=== PATIENT | female | born 1980 | race African-American/Black ===

== ENCOUNTER 2017-10-31 14:44 | Emergency (ER) | payer SELFPAY ==
[2017-10-31 15:53] LABS: Absolute Lymphocytes (CBC) 1.7 K/uL (0.7-4.9); Absolute Monocytes 0.3 K/uL (0.1-1.3); Absolute Neutrophil 2.4 K/uL (1.8-8.0); Basophils % 0.7 % (0-1.3); Eosinophils % 1.7 % (0-4.4); Hematocrit 35.7 % (36.0-45.0); Lymphocytes % 37.3 % (15.3-44.8); MCH 29.2 pg (27.0-35.0); MCV 87.8 fL (80-100); MPV 8.2 fL (7.6-11.3); Monocytes % 6.7 % (3.3-12.3); RBC Red Blood Cell Count 4.07 M/uL (3.86-4.86)
[2017-10-31 16:08] LABS: ALT/SGPT 16 U/L (12-78); AST/SGOT 13 U/L (15-37); Albumin 3.4 g/dL (3.4-5.0); Alkaline Phosphatase 82 U/L (45-117); BUN Blood Urea Nitrogen 11 mg/dL (7-18); Bicarbonate 30 mmol/L (21-32); Bilirubin Direct < 0.1 mg/dL (0-0.2); Bilirubin Total 0.3 mg/dL (0.2-1.0); Glucose Level 94 mg/dL (74-106); Lipase 123 U/L (73-393); Potassium 4.1 mmol/L (3.5-5.1); Protein, Total 7.2 g/dL (6.4-8.2); Sodium Level 140 mmol/L (136-145)
--- NOTE | 2017-10-31 17:13 | RAD REPORT ---
EXAM DESCRIPTION: CT - Stone Protocol - 10/31/2017 5:02 pm CLINICAL HISTORY: Flank pain. Flank pain;Constipation COMPARISON: No comparisons TECHNIQUE: Axial images were obtained without oral or IV contrast. Lack of contrast limits solid org an and vascular assessment. The [id number] spans the entirety of the system partially obscuring uppermost abdomen and lung bases. Coronal reformatted images were obtained and reviewed. All CT scans are performed using dose optimization technique as appropriate and may include automated exposure control or mA/KV adjustment according to patient size. FINDINGS: The lower lung jimenez are clear. Imaged portions of the liver and spleen show no suspicious findings on non-contrast imaging.Cholelith iasis. The pancreas and adrenal glands are normal. No pathologic lymphadenopathy in the abdomen or pe lvis. No urinary tract stones or obstructive uropathy. No bowel obstruction, free air, free fluid or abscess. Prominent mild of stool is present in the colo n. Small fat containing supraumbilical hernia is present without bowel involvement. Trace fluid is pr esent hernia sac.The appendix is not identified as a discrete structure, however, no secondary findin gs of appendicitis are identified. No fracture seen. Prominent L5-S1 spondylosis. Mildly enlarged uterus with 3 cm left adnexal cyst or follicle suspected. IMPRESSION: No urinary tract stones or obstructive uropathy. Significant fecal retention. Cholelithiasis.
[2017-10-31 17:26] LABS: Urine Blood NEGATIVE (NEG); Urine Glucose NEGATIVE (NEG); Urine Protein NEGATIVE (NEG)
--- NOTE | 2017-10-31 17:38 | ER ---
Nurse's Notes [facility] Name: Nathalie Cruz Age: 37 yrs Sex: Female : 1980 Arrival Date: 10/31/2017 Time: 14:48 Bed 14 Private MD: Diagnosis: Constipation;Unspecified abdominal pain;Cholelithiasis Presentation: 10/31 14:50 Presenting complaint: Patient states: " My side and lower back are hurting and I'm ph constipated. I've even tried suppositories and they aren't helping. Also my hernia (umbilical) is out and won't go back in." Pt reports R low back and flank pain, denies N/V or fever. Transition of care: patient was not received from another setting of care. Onset of symptoms was October 31, 2017. Risk Assessment: Do you want to hurt yourself or someone else? Patient reports no desire to harm self or others. Initial Sepsis Screen: Does the patient meet any 2 criteria? No. Patient's initial sepsis screen is negative. Does the patient have a suspected source of infection? No. Patient's initial sepsis screen is negative. Care prior to arrival: None. 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 - Social history:: Smoking status: Patient uses tobacco products, smokes one-half pack cigarettes per day. - Ebola Screening: : No symptoms or risks identified at this time. Screenin:00 Abuse screen: Denies threats or abuse. Nutritional screening: No deficits noted. rb1 Tuberculosis screening: No symptoms or risk factors identified. Fall Risk None identified. Assessment: 15:00 General: Appears in no apparent distress. comfortable, Behavior is calm, cooperative. rb1 Pain: Complains of pain in right lower quadrant and left lower quadrant Pain radiates to right flank Pain currently is 8 out of 10 on a pain scale. Neuro: Level of Consciousness is awake, alert, obeys commands, Oriented to person, place, time, situation. Cardiovascular: Capillary refill < 3 seconds is brisk in bilateral fingers. Respiratory: Airway is patent Respiratory effort is even, unlabored, Respiratory pattern is regular, symmetrical. GI: Bowel sounds present X 4 quads. Abd is soft Abdomen is tender to palpation in right lower quadrant and left lower quadrant Reports constipation. : No signs and/or symptoms were reported regarding the genitourinary system. Derm: Skin is dry, Skin is normal, Skin temperature is warm. 16:00 Reassessment: Patient appears in no apparent distress at this time. No changes from rb1 previously documented assessment. 17:00 Reassessment: Patient appears in no apparent distress at this time. Patient and/or rb1 family updated on plan of care and expected duration. Pain level reassessed. Patient is alert, oriented x 3, equal unlabored respirations, skin warm/dry/pink. 17:52 Reassessment: Patient appears in no apparent distress at this time. No changes from rb1 previously documented assessment. Vital Signs: 14:53 BP 98 / 60; Pulse 63; Resp 18; Temp 97.9; Pulse Ox 100% on R/A; Weight 61.23 kg; Height ph 5 ft. 4 in. (162.56 cm); Pain 8/10; 15:50 BP 108 / 41; Pulse 63; Resp 16; Pulse Ox 98% on R/A; rb1 16:46 BP 102 / 67; Pulse 55; Resp 17; Pulse Ox 100% ; rb1 17:46 BP 103 / 66; Pulse 62; Resp 16; Pulse Ox 100% on R/A; rb1 14:53 Body Mass Index 23.17 (61.23 kg, 162.56 cm) ph ED Course: 14:48 Patient arrived in ED. mr 14:52 Triage completed. ph 14:53 Arm band placed on. ph 14:58 Lakhwinder Clements, ROMAN is PHCP. pm1 14:58 Donavan Solano MD is Attending Physician. pm1 15:00 Patient has correct armband on for positive identification. Bed in low position. Call rb1 light in reach. Side rails up X 1. Pulse ox on. NIBP on. Warm blanket given. 15:02 Kassandra Comer, ERVIN is Primary Nurse. rb1 15:35 Inserted saline lock: 22 gauge in right antecubital area, using aseptic technique. rb1 Blood collected. 15:48 Radiology exam delayed due to test not completed at this time. jj2 16:[address] vm2 17:03 CT Stone Protocol In Process Unspecified. EDMS 17:39 Joshua Morales MD is Referral Physician. pm1 18:01 No provider procedures requiring assistance completed. IV discontinued, intact, rb1 bleeding controlled, No redness/swelling at site. Pressure dressing applied. Administered Medications: No medications were administered Outcome: 17:38 Discharge ordered by MD. pm1 18:01 Patient left the ED. rb1 18:01 Discharged to home ambulatory. rb1 18:01 Condition: stable 18:01 Discharge instructions given to patient, Instructed on discharge instructions, follow up and referral plans. medication usage, Demonstrated understanding of instructions, follow-up care, medications, Prescriptions given X 1. Signatures: Dispatcher [employer] [facility] Kristie Cruz mr LoyolaDarryl jj2 Laura Sousa RN RN Kassandra Loco RN RN rb1 Lakhwinder Clements, ROMAN CASH ROOM CLERK pm1 Jewels Nicholas 2
--- NOTE | 2017-10-31 17:38 | EDPHYS ---
Physician Documentation [facility] Name: Nathalie Cruz Age: 37 yrs Sex: Female : 1980 Arrival Date: 10/31/2017 Time: 14:48 Bed 14 Private MD: ED Physician Donavan Solano HPI: 10/31 17:09 This 37 yrs old Black Female presents to ER via Ambulatory with complaints of Abdominal pm1 Pain, Constipation. 17:09 The patient presents with abdominal pain right flank pain and constipation. Onset: The pm1 symptoms/episode began/occurred 5 day(s) ago. The symptoms do not radiate. Associated signs and symptoms: Pertinent positives: constipation, Pertinent negatives: nausea and vomiting, chest pain, diarrhea, dysuria, fever, shortness of breath. The symptoms are described as constant. Modifying factors: The symptoms are alleviated by nothing, the symptoms are aggravated by nothing. Severity of pain: in the emergency department the pain is unchanged. The patient has experienced similar episodes in the past, a few times. The patient has not recently seen a physician. Patient with complaints of right flank pain, diffuse abdominal pain, constipation, and hernia. Patient has been taking laxatives for her constipation for 5 days. Patient reports that she is not able to push her hernia back in. 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 - Social history:: Smoking status: Patient uses tobacco products, smokes one-half pack cigarettes per day. - Ebola Screening: : No symptoms or risks identified at this time. ROS: 17:09 Constitutional: Negative for fever, chills, and weight loss, Eyes: Negative for injury, pm1 pain, redness, and discharge, ENT: Negative for injury, pain, and discharge, Neck: Negative for injury, pain, and swelling, Cardiovascular: Negative for chest pain, palpitations, and edema, Respiratory: Negative for shortness of breath, cough, wheezing, and pleuritic chest pain. 17:09 : Negative for injury, bleeding, discharge, and swelling, MS/Extremity: Negative for injury and deformity, Skin: Negative for injury, rash, and discoloration, Neuro: Negative for headache, weakness, numbness, tingling, and seizure. 17:09 Abdomen/GI: Positive for abdominal pain, constipation, Hernia ventral, Negative for nausea, vomiting, and diarrhea. 17:09 Back: Positive for flank pain, on the right. Exam: 17:09 Constitutional: This is a well developed, well nourished patient who is awake, alert, pm1 and in no acute distress. Head/Face: Normocephalic, atraumatic. Eyes: Pupils equal round and reactive to light, extra-ocular motions intact. Lids and lashes normal. Conjunctiva and sclera are non-icteric and not injected. Cornea within normal limits. Periorbital areas with no swelling, redness, or edema. ENT: Nares patent. No nasal discharge, no septal abnormalities noted. Tympanic membranes are normal and external auditory canals are clear. Oropharynx with no redness, swelling, or masses, exudates, or evidence of obstruction, uvula midline. Mucous membranes moist. Neck: Trachea midline, no thyromegaly or masses palpated, and no cervical lymphadenopathy. Supple, full range of motion without nuchal rigidity, or vertebral point tenderness. No Meningismus. Chest/axilla: Normal chest wall appearance and motion. Nontender with no deformity. No lesions are appreciated. Cardiovascular: Regular rate and rhythm with a normal S1 and S2. No gallops, murmurs, or rubs. Normal PMI, no JVD. No pulse deficits. Respiratory: Lungs have equal breath sounds bilaterally, clear to auscultation and percussion. No rales, rhonchi or wheezes noted. No increased work of breathing, no retractions or nasal flaring. 17:09 Back: No spinal tenderness. No costovertebral tenderness. Full range of motion. Skin: Warm, dry with normal turgor. Normal color with no rashes, no lesions, and no evidence of cellulitis. MS/ Extremity: Pulses equal, no cyanosis. Neurovascular intact. Full, normal range of motion. 17:09 Abdomen/GI: Inspection: abdomen appears normal, Bowel sounds: normal, Palpation: abdomen is soft and non-tender, Hernia: noted in the paraumbilical area, incarceration, is not appreciated, tenderness, is not appreciated, Easily reduced with tenderness. 17:09 Neuro: Orientation: is normal, Motor: is normal, moves all fours. Vital Signs: 14:53 BP 98 / 60; Pulse 63; Resp 18; Temp 97.9; Pulse Ox 100% on R/A; Weight 61.23 kg; Height ph 5 ft. 4 in. (162.56 cm); Pain 8/10; 15:50 BP 108 / 41; Pulse 63; Resp 16; Pulse Ox 98% on R/A; rb1 16:46 BP 102 / 67; Pulse 55; Resp 17; Pulse Ox 100% ; rb1 17:46 BP 103 / 66; Pulse 62; Resp 16; Pulse Ox 100% on R/A; rb1 14:53 Body Mass Index 23.17 (61.23 kg, 162.56 cm) ph MDM: 14:58 Patient medically screened. pm1 17:14 Data reviewed: vital signs. Data interpreted: Pulse oximetry: on room air is 100 %. pm1 Interpretation: normal. 17:37 Counseling: I had a detailed discussion with the patient and/or guardian regarding: the pm1 historical points, exam findings, and any diagnostic results supporting the discharge/admit diagnosis, lab results, radiology results, the need for outpatient follow up, to return to the emergency department if symptoms worsen or persist or if there are any questions or concerns that arise at home. 10/31 15:11 Order name: Basic Metabolic Panel; Complete Time: 16:13 pm10/31 15:11 Order name: CBC with Diff; Complete Time: 16:13 pm10/31 15:11 Order name: Hepatic Function; Complete Time: 16:13 pm10/31 15:11 Order name: Lipase; Complete Time: 16:13 pm10/31 17:01 Order name: Urine Dipstick--Ancillary (enter results); Complete Time: 17:30 eb 10/31 17:01 Order name: Urine --Ancillary (enter results); Complete Time: 17:30 eb 10/31 15:11 Order name: Urine Test (obtain specimen); Complete Time: 16:41 pm1 10/31 15:11 Order name: IV Saline Lock; Complete Time: 15:45 pm10/31 15:11 Order name: Labs collected and sent; Complete Time: 15:45 pm10/31 15:11 Order name: Urine Dipstick-Ancillary (obtain specimen); Complete Time: 16:41 pm1 10/31 15:11 Order name: CT Stone Protocol; Complete Time: 17:30 pm1 Administered Medications: No medications were administered Disposition: 11/01 07:29 Co-signature as Attending Physician, Donavan Solano MD I agree with the assessment and ninfa plan of care. Disposition: 10/31/17 17:38 Discharged to Home. Impression: Constipation, Unspecified abdominal pain, Cholelithiasis. - Condition is Stable. - Discharge Instructions: Abdominal Pain, Adult, Constipation, Adult, Hernia, Adult, Cholelithiasis. - Prescriptions for Lactulose 10 gram/15 mL Oral Solution - take 30 milliliter by ORAL route once daily; 300 milliliter. - Medication Reconciliation Form, Thank You Letter, Antibiotic Education, Prescription Opioid Use form. - Follow up: Emergency Department; When: As needed; Reason: Worsening of condition. Follow up: Private Physician; When: 2 - 3 days; Reason: Recheck today's complaints, Continuance of care, Re-evaluation by your physician. Follow up: Joshua Morales MD; When: 2 - 3 days; Reason: Recheck today's complaints, Continuance of care, Re-evaluation by your physician. - Problem is new. - Symptoms have improved. Signatures: Dispatcher [employer] EDDonavan Art MD MD cha Hall, Patricia, RN RN Kassandra Loco, ERVIN RN Lakhwinder Almonte, ROMAN COW TENDER pm1 Corrections: (The following items were deleted from the chart) 10/31 17:39 17:38 10/31/2017 17:38 Discharged to Home. Impression: Constipation; Unspecified pm1 abdominal pain; Cholelithiasis. Condition is Stable. Forms are Medication Reconciliation Form, Thank You Letter, Antibiotic Education, Prescription Opioid Use. Follow up: Emergency Department; When: As needed; Reason: Worsening of condition. Follow up: Private Physician; When: 2 - 3 days; Reason: Recheck today's complaints, Continuance of care, Re-evaluation by your physician. Problem is new. Symptoms have improved. pm1 17:39 17:39 10/31/2017 17:38 Discharged to Home. Impression: Constipation; Unspecified pm1 abdominal pain; Cholelithiasis. Condition is Stable. Discharge Instructions: Abdominal Pain, Adult, Constipation, Adult, Hernia, Adult, Cholelithiasis. Prescriptions for Lactulose 10 gram/15 mL Oral Solution - take 30 milliliter by ORAL route once daily; 300 milliliter. and Forms are Medication Reconciliation Form, Thank You Letter, Antibiotic Education, Prescription Opioid Use. Follow up: Emergency Department; When: As needed; Reason: Worsening of condition. Follow up: Private Physician; When: 2 - 3 days; Reason: Recheck today's complaints, Continuance of care, Re-evaluation by your physician. Follow up: Joshua Morales; When: As needed; Reason: Recheck today's complaints, Continuance of care, Re-evaluation by your physician. Problem is new. Symptoms have improved. pm1 18:01 17:39 10/31/2017 17:38 Discharged to Home. Impression: Constipation; Unspecified rb1 abdominal pain; Cholelithiasis. Condition is Stable. Discharge Instructions: Abdominal Pain, Adult, Constipation, Adult, Hernia, Adult, Cholelithiasis. Prescriptions for Lactulose 10 gram/15 mL Oral Solution - take 30 milliliter by ORAL route once daily; 300 milliliter. and Forms are Medication Reconciliation Form, Thank You Letter, Antibiotic Education, Prescription Opioid Use. Follow up: Emergency Department; When: As needed; Reason: Worsening of condition. Follow up: Private Physician; When: 2 - 3 days; Reason: Recheck today's complaints, Continuance of care, Re-evaluation by your physician. Follow up: Joshua Morales; When: 2 - 3 days; Reason: Recheck today's complaints, Continuance of care, Re-evaluation by your physician. Problem is new. Symptoms have improved. pm1
== END 2017-10-31 18:01 | disposition home or self-care (01) ==
LOC: ER 14:44
DX: K80.20 Calculus of gallbladder without cholecystitis without obstruction (principal); K59.00 Constipation, unspecified; F17.210 Nicotine dependence, cigarettes, uncomplicated
CPT/HCPCS: 36415; 74176; 76377; 80048; 80076; 81003; 81025; 83690; 85025; 99284